=== PATIENT | male | born 2000 ===

== ENCOUNTER 2022-05-06 18:42 | Emergency (ER) | payer OTHER ==
[~2022-05-06] VITALS: Ht 180 cm; Wt 79.8 kg
--- NOTE | 2022-05-06 19:07 | ED Lower Extremity ---
General Chief Complaint: Lower Extremity Stated Complaint: RIGHT ANKLE INJURY Source: patient Exam Limitations: no limitations (FIGUEROA MÁRQUEZ) History of Present Illness Date Seen by Provider: May 06, 2022 Time Seen by Provider: 19:05 Initial Comments Patient is a 21-year-old male who presents ED with right lateral ankle pain. Patient states when he went up to jump for a ball he landed awkwardly on his right foot. Had some pain to the right lateral ankle. Continued to play for 10 minutes and started having significant swelling. Pain with is very minimal. History of previous injury 4 months ago. He reports normal active range of motion. Denies taking thing for pain. Patient [place] fever, chills, nausea, vomiting, diarrhea. (FIGUEROA MÁRQUEZ) Allergies and Home Medications Patient Home Medication List Home Medication List Reviewed: Yes (FIGUEROA MÁRQUEZ) Review of Systems Constitutional: No chills, No diaphoresis, No weakness EENTM: No blurred vision, No double vision Respiratory: No cough Cardiovascular: No chest pain Gastrointestinal: No abdominal pain, No diarrhea, No nausea, No vomiting Genitourinary: No decreased output, No discharge Musculoskeletal: No back pain; joint pain, joint swelling; No muscle pain, No muscle stiffness Skin: No change in color, No change in hair/nails (FIGUEROA MÁRQUEZ) All Other Systems Reviewed Negative Unless Noted: Yes (FIGUEROA MÁRQUEZ) Past Gykxymt-Jmmase-Ytljjo Hx Patient Social History Tobacco Use?: Yes Tobacco type used: Cigarettes E-Cig or Vaping type used: Nicotine Substance use?: No Alcohol Use?: No (FIGUEROA MÁRQUEZ) Immunizations Up To Date Influenza Vaccine Up-to-Date: Yes; Up-to-Date (FIGUEROA MÁRQEUZ) Physical Exam Vital Signs Vital Signs - First Documented 05/06/22 18:59 Pulse 95 B/P (MAP) 147/83 (104) Pulse Ox 98 O2 Delivery Room Air (CHRIS HORNE MD) Vital Signs Capillary Refill : (FIGUEROA MÁRQUEZ) Height, Weight, BMI Height: '" Weight: lbs. oz. kg; BMI Method: General Appearance: WD/WN, no apparent distress HEENT: PERRL/EOMI, normal ENT inspection, TMs normal, pharynx normal Neck: non-tender, full range of motion, supple Cardiovascular: regular rate, rhythm, no edema, no gallop, no JVD Respiratory: chest non-tender, lungs clear, normal breath sounds, no respiratory distress Gastrointestinal: normal bowel sounds, non tender, soft, no organomegaly Back: no CVA tenderness Knees: bilateral knee non-tender, bilateral knee normal inspection, bilateral knee normal range of motion Ankles: right ankle pain, right ankle soft tissue tenderness, right ankle swelling Feet: bilateral foot non-tender, bilateral foot normal inspection; right foot soft tissue tenderness, right foot swelling Neurologic/Psychiatric: 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 Stability noted. Due to the tenderness to this location and swelling x-ray was ordered. X-ray read by myself was negative for acute fracture. Radiologist over read the x-ray negative for acute fracture. Ice was applied. Discussed these results with patient. Patient still having difficulty bearing weight. Crutches was provided. Patient was placed in a Javan wrap for comfort. Discussed orthopedic outpatient follow-up in 7 to 10 days for reevaluation. Discussed range of motion exercises, ice, rest and anti-inflammatories such as ibuprofen 600 mg every 8 hours to help with the swelling and pain. If any worsening symptoms to return back to ED for further evaluation. Provided orthopedic outpatient follow-up Dr. Butterfield. Discussed length of symptoms potentially for his symptoms. (FIGUEROA MÁRQUEZ) Impression Primary Impression: Ankle sprain Disposition: 01 HOME, SELF-CARE Condition: Stable Departure-Patient Inst. Decision time for Depature: 19:53 (FIGUEROA MÁRQUEZ) Referrals: NO,LOCAL PHYSICIAN (PCP) Primary Care Physician NANCY BUTTERFIELD MD Patient Instructions: Ankle Sprain ED Add. Discharge Instructions: Recommend ice 3-4 times a day for at least 20 minutes per session for the next 2 or 3 days. Anti-inflammatories to help with swelling. Javan wrap for support. All discharge instructions reviewed with patient and/or family. Voiced understanding. Work/School Note: Work Release Form Date Seen in the Emergency Department: May 06, 2022 Return to Work: May 09, 2022 ATTENDING PHYSICIAN NOTE: I was physically present as attending physician in the emergency department during the care of this patient, but I was not directly involved in the decision making or delivery of care for this patient. (CHRIS HORNE MD) FIGUEROA MÁRQUEZ May 06, 2022 19:07 CHRIS HORNE MD May 07, 2022 05:19
--- NOTE | 2022-05-06 19:47 | Diagnostic Imaging Report ---
EXAM: Ankle, right, 3 views INDICATION: Right ankle trauma and pain. COMPARISON: None. FINDINGS: Soft tissue swelling about the lateral malleolus. No fracture or malalignment. IMPRESSION: No acute osseous finding in the right ankle. Dictated by: Dictated on workstation # [id number]
[2022-05-06 20:11] VITALS: BP 166/104
== END 2022-05-06 20:11 | disposition home or self-care (01) ==
LOC: ER 18:47
DX: S93.401A Sprain of unspecified ligament of right ankle, initial encounter (principal); F17.210 Nicotine dependence, cigarettes, uncomplicated; X50.9XXA Other and unspecified overexertion or strenuous movements or postures, initial encounter; Y93.68 Activity, volleyball (beach) (court)
CPT/HCPCS: 73610